=== PATIENT | female | born 1985 | race African-American/Black ===

== ENCOUNTER 2016-08-24 05:09 | Emergency (ER) | payer OTHER | END 2016-08-24 06:13 | disposition home or self-care (01) | LOC: ER 05:09 | DX: S51.011A Laceration without foreign body of right elbow, initial encounter (principal); W26.8XXA Contact with other sharp object(s), not elsewhere classified, initial encounter; Y92.69 Other specified industrial and construction area as the place of occurrence of the external cause; Y99.0 Civilian activity done for income or pay ==

== ENCOUNTER 2016-09-14 20:55 | Emergency (ER) | payer BC | END 2016-09-15 00:48 | disposition home or self-care (01) | LOC: ER 20:55 | DX: O20.0 Threatened abortion (principal) | CPT/HCPCS: 36415 ==